=== PATIENT | male | born 1955 | race Caucasian/White ===

== ENCOUNTER 2017-11-22 05:09 | Inpatient (IN) | payer MEDICARE ==
[~2017-11-22] VITALS: Ht 175.3 cm; Wt 103.6 kg
[~2017-11-22 05:09] MED LIST: AMLO5TAB2 PO; AZAT50 PO; CYCL10TA PO; DICL75TA PO; FENO200C PO; HYDR-2376 PO; HYDR12.56 PO; OLOP1DRO2 EACH EYE
[2017-11-22] MEDS ORDERED: POVIDONE IODINE 5% (ANTISEPSIS KIT) 4 APPLICATIONS EACH NARE PRN (05:30)
[2017-11-22] MEDS ORDERED: CHLORHEXIDINE GLUCONATE 2 % 1 PACK (2 CLOTHS) TOPICAL PRN (05:30)
[2017-11-22] MEDS ORDERED: SODIUM CHLORID 0.9% 500 ML IV PRN (05:30)
[2017-11-22] MEDS ORDERED: DEXAMETHASONE SOD PHOS 20 MG/5 ML VIAL IV PRN (05:30)
[2017-11-22] MEDS ORDERED: METOPROLOL TARTRATE 25 MG TAB PO PRN (05:30)
[2017-11-22] MEDS ORDERED: LACTATED RINGER'S 1000 ML IV PRN (05:30)
[2017-11-22] MEDS ORDERED: CHLORHEXIDINE GLUCONATE 4% SOLN 120 ML BTL TOPICAL SCH (05:45)
[2017-11-22] MEDS ORDERED: TRANEXAMIC ACID IV SCH (05:45)
[2017-11-22] MEDS ORDERED: POVIDONE IODINE 7.5% SCRUB 118 ML BOTTLE TOPICAL SCH (05:45)
[2017-11-22] MEDS ORDERED: ROPIVACAINE PERI-ARTICULAR INJECTION. P-ARTICULR SCH ×5 (05:45)
[2017-11-22] MEDS ORDERED: VANCOMYCIN 1000 MG/NS 250 ML (for <70 kg) IV SCH ×2 (05:45)
[2017-11-22] MEDS ORDERED: SODIUM CHLORIDE 0.9% IV SCH (05:45)
[2017-11-22] MEDS ORDERED: ceFAZolin 2 GM PREMIX 50 ML IV SCH (05:45)
[2017-11-22] MEDS ORDERED: TRANEXAMIC PERI-ARTICULAR 3,000 MG/NS 100 ML P-ARTICULR SCH ×2 (05:45)
[2017-11-22] MEDS ORDERED: GENTAMICIN SULFATE 80 MG/2 ML VIAL ONE (07:21)
[2017-11-22] MEDS ORDERED: BUPIVACAINE LIPOSOME PF 1.3% 20 ML VIAL ONE (07:48)
[2017-11-22] MEDS ORDERED: ACETAMINOPHEN 1000 MG/100 ML 100 ML IV ONE (07:49)
[2017-11-22] MEDS ORDERED: PROPOFOL 500 MG/50 ML INJ 50 ML ONE (07:55)
--- NOTE | 2017-11-22 08:32 | HHI.DCPOC ---
Discharge Care Plan Diagnosis: (1) Primary osteoarthritis of left knee Your Health Problems Are: Difficulty with ADL Goals to Promote Your Health * To prevent worsening of your condition and complications * To maintain your health at the optimal level Directions to Meet Your Goals Take your medications as prescribed Follow your dietary instruction Follow activity as directed Keep your appointments as scheduled Take your immunizations and boosters as scheduled If your symptoms worsen call your PCP, if no PCP go to Urgent Care Center or Emergency Room Smoking is Dangerous to Your Health. Avoid second hand smoke Call the 24-hour hour crisis hotline for domestic abuse at Luis A Jama Nov 22, 2017 08:32
--- NOTE | 2017-11-22 08:35 | HHI.FF ---
Face to Face Verification Diagnosis: (1) Primary osteoarthritis of left knee Physical Therapy Gait training, Safety evaluation, Transfer training, bed to chair Knee: Total knee, Protocol: Left Left LE Weight Bearing: WB as tolerated Nursing RN: 3 days/week x 2 weeks Nursing: Kj teaching, Dressing changes Dressing Changes: Daily dressing change I have seen patient Janes Oropeza on 11/22/17. My clinical findings support the need for the requested home health care services because: Limited ability to care for self High risk of falls I certify that my clinical findings support that this patient is homebound because: Post-op weakness Unsteady gait/balance Luis A Jama Nov 22, 2017 08:35
[2017-11-22] MEDS ORDERED: CPMMACHINE (08:36)
[2017-11-22] MEDS ORDERED: COMMODE 3-IN-11 MIS (08:36)
[2017-11-22] MEDS ORDERED: WALKER WHEELS/F1 MIS (08:36)
[2017-11-22] MEDS ORDERED: CLINDAMYCIN PHOS 900 MG/6 ML VIAL ONE (08:37)
[2017-11-22] MEDS ORDERED: Post-op Orders (for Pharmacy) XX ONE (08:45)
[2017-11-22] MEDS ORDERED: ONDANSETRON HCL 4 MG/2 ML VIAL IVP PRN (08:45)
[2017-11-22] MEDS ORDERED: ACETAMINOPHEN/HYDROcodone 325 MG/7.5 MG TAB PO PRN (08:45)
[2017-11-22] MEDS ORDERED: BISACODYL 10 MG SUPP RECTAL PRN (08:45)
[2017-11-22] MEDS ORDERED: diphenhydrAMINE HCL 50 MG/ML VIAL IV PUSH PRN (08:45)
[2017-11-22] MEDS ORDERED: HYDR-3288 PO (08:49)
[2017-11-22] MEDS ORDERED: ASPI81CH6 CHEW (08:50)
[2017-11-22] MEDS ORDERED: ENOX40P SQ (08:50)
[2017-11-22] MEDS ORDERED: DO NOT ADM ANY ANTICOAGULANT DRUGS PRN (10:44)
[2017-11-22] MEDS: SODIUM CHLOR 0.9% 1000 ML INJ 1,000 ML IV SCH ×3 (11:04→21:09)
--- NOTE | 2017-11-22 11:54 | PD.ORT.PN ---
Subjective Post Op Day #: 0 Objective Vitals Vital Signs Date Time Temp Pulse Resp B/P (MAP) Pulse Ox O2 Delivery O2 Flow Rate FiO2 11/22/17 11:30 76 15 125/68 (87) 95 Room Air 11/22/17 11:15 78 20 124/65 (84) 95 Room Air 11/22/17 11:00 84 22 110/53 (72) 96 Room Air 11/22/17 10:45 98.2 85 14 130/64 (86) 96 Nasal Cannula 2 11/22/17 06:15 98.7 82 16 148/86 (106) 97 I/O 11/21/17 11/21/17 11/21/17 11/22/17 11/22/17 11/22/17 07:00 15:00 23:00 07:00 15:00 23:00 Intake Total 1250 ml Output Total 550 ml Balance 700 ml Intake IV Total 1250 ml Output Urine Total 450 ml Estimated Blood Loss 100 ml Assessment & Plan Ortho Post Op Day #: 0 Problem List: Assessment and Plan s/p L TKA wbat daily dressing changes lovenox d/c planning home with hhc and pt - sat or sun if does well in PT rx in chart f/up dr. collins 2 weeks Luis A Jama Nov 22, 2017 11:54
[2017-11-22 12:00] VITALS: BP 136/75; PULSE 83; RESP 16; TEMP 96.8; O2SAT 96
[2017-11-22] MEDS ORDERED: LACTATED RINGER'S 1000 ML INJ 1,000 ML IV ONE (12:00)
[2017-11-22] MEDS ORDERED: PROPOFOL 200 MG/20 ML AMP IV ONE (12:00)
[2017-11-22] MEDS ORDERED: ONDANSETRON HCL 4 MG/2 ML VIAL IV PUSH ONE (12:00)
[2017-11-22] MEDS ORDERED: SODIUM CHLORIDE 0.9% 20 ML VIAL IV ONE (12:00)
--- NOTE | 2017-11-22 12:18 | RADRPT ---
EXAM DATE/TIME: 11/22/2017 11:21 [facility] COMPARISON: No previous studies available for comparison. INDICATIONS : Post total left knee. MEDICAL HISTORY : None. SURGICAL HISTORY : Total knee replacement, left. ENCOUNTER: Initial ACUITY: 1 day PAIN SCORE: 1/10 LOCATION: Left knee FINDINGS: Postop total left knee replacement. Air and fluid in soft tissues. Normal alignment. CONCLUSION: 1. Postop knee replacement. Antwan Glynn MD on November 22, 2017 at 12:13 Board Certified Radiologist. This report was verified electronically.
[2017-11-22] MEDS: ACETAMINOPHEN/HYDROcodone 325 MG/7.5 MG TAB PO PRN ×3 (15:33→23:36)
[2017-11-22 16:00] VITALS: BP 178/94; PULSE 107; RESP 18; TEMP 97; O2SAT 95
--- NOTE | 2017-11-22 16:07 | PD.CONS ---
[facility] By Dr. Luis A Carcamo Reason for Consult Medical management history of hypertension arthritis hypertriglyceridemia Primary Care Physician Cody Orosco Jr, DO Diagnoses: History of Present Illness Patient is a very pleasant 62-year-old male with known history of hypertension arthritis who is admitted under orthopedic service and underwent left total knee arthroplasty. Patient has been dealing with this pain for about 1-1/2 years now with increasing difficulty walking. Not using any assistive device but patient states "struggling through". Admitted today and underwent left [facility] of history of hypertension. Patient seen postop day 0 very motivated with physical therapy patient already ambulated with PT today. And did very well with a walker. Review of Systems Constitutional: DENIES: Diaphoretic episodes, Fatigue, Fever, Weight gain, Weight loss, Chills, Dizziness, Change in appetite, Night Sweats Endocrine: DENIES: Heat/cold intolerance, Polydipsia, Polyuria, Polyphagia Eyes: DENIES: Blurred vision, Diplopia, Eye inflammation, Eye pain, Vision loss , Photosensitivity, Double Vision Ears, nose, mouth, throat: DENIES: Tinnitus, Hearing loss, Vertigo, Nasal discharge, Oral lesions, Throat pain, Hoarseness, Ear Pain, Running Nose, Epistaxis, Sinus Pain, Toothache, Odynophagia Respiratory: DENIES: Apneas, Cough, Snoring, Wheezing, Hemoptysis, Sputum production, Shortness of breath Cardiovascular: DENIES: Chest pain, Palpitations, Syncope, Dyspnea on Exertion , PND, Lower Extremity Edema, Orthopnea, Claudication Gastrointestinal: DENIES: Abdominal pain, Black stools, Bloody stools, Constipation, Diarrhea, Nausea, Vomiting, Difficulty Swallowing, Anorexia Genitourinary: DENIES: Sexual dysfunction, Urinary frequency, Urinary incontinence, Urgency, Hematuria, Dysuria, Nocturia, Penile Discharge, Testicular Pain, Testicular Swelling Musculoskeletal: COMPLAINS OF: Joint pain Integumentary: DENIES: Abnormal pigmentation, Nail changes, Pruritus, Rash Hematologic/lymphatic: DENIES: Bruising, Lymphadenopathy Immunologic/allergic: DENIES: Eczema, Urticaria Neurologic: DENIES: Abnormal gait, Headache, Localized weakness, Paresthesias, Seizures, Speech Problems, Tremor, Poor Balance Psychiatric: DENIES: Anxiety, Confusion, Mood changes, Depression, Hallucinations, Agitation, Suicidal Ideation, Homicidal Ideation, Delusions Past Family Social History Allergies: Coded Allergies: cephalexin (Verified Allergy, Severe, Rash, 11/22/17) ciprofloxacin (Verified Allergy, Severe, MOUTH SORES, 11/22/17) SKIN ITCHES niacin (Verified Allergy, Severe, Rash, 11/22/17) crawling feeling penicillin G (Verified Allergy, Severe, rash, 11/22/17) Past Medical History Hypertension Arthritis Hypertriglyceridemia History of Erythrocytosis- per patient requiring periodic phlebtomy- about 1 pint every 60-90 days Denies any history of diabetes denies any history of CVA denies any history of CAD Past Surgical History Gallbladder surgery Appendectomies for a ruptured up and discitis Abdominal hernia surgery rhinoplasties x2 for broken bones due to sports injuries Reported Medications Up home patient is on Flexeril Fenofibrate Diclofenac sodium Aspirin Hydrochlorothiazide Azathioprine Active Ordered Medications Multivitamins Lovenox Hydrochlorothiazide Ambien when necessary Amlodipine Lortab when necessary for pain Family History Strong family history of CVA Social History Quit smoking 15 years ago Very occasional wine Denies any substance abuse Physical Exam Vital Signs Vital Signs Date Time Temp Pulse Resp B/P (MAP) Pulse Ox O2 Delivery O2 Flow Rate FiO2 11/22/17 12:30 97.5 81 22 125/65 (85) 96 Room Air 11/22/17 12:15 78 17 120/64 (82) 96 Room Air 11/22/17 12:00 96.8 83 16 136/75 (95) 96 11/22/17 12:00 79 22 124/73 (90) 95 Room Air 11/22/17 11:45 78 24 123/70 (87) 95 Room Air 11/22/17 11:30 76 15 125/68 (87) 95 Room Air 11/22/17 11:15 78 20 124/65 (84) 95 Room Air 11/22/17 11:00 84 22 110/53 (72) 96 Room Air 11/22/17 10:45 98.2 85 14 130/64 (86) 96 Nasal Cannula 2 11/22/17 06:15 98.7 82 16 148/86 (106) 97 Physical Exam GENERAL: This is a well-nourished, well-developed patient, in no apparent distress. SKIN: No rashes, ecchymoses or lesions. Cool and dry. HEAD: Atraumatic. Normocephalic. No temporal or scalp tenderness. EYES: Pupils equal round and reactive. Extraocular motions intact. No scleral icterus. ENT: Nose without bleeding, . Throat without erythema, tonsillar hypertrophy or exudate. Uvula midline. Airway patent. NECK: Trachea midline. No JVD Supple, nontender, no meningeal signs. CARDIOVASCULAR: Regular rate and rhythm without murmurs, gallops, or rubs. RESPIRATORY: Clear to auscultation. Breath sounds equal bilaterally. No wheezes , rales, or rhonchi. GASTROINTESTINAL: Abdomen soft, non-tender, nondistended. No hepato-splenomegaly , or palpable masses. No guarding. Duke catheter in place MUSCULOSKELETAL: Extremities without clubbing, cyanosis, or edema. No joint tenderness, effusion, or edema noted. No calf tenderness. Negative Homans sign bilaterally. Left knee postop dressing in place. NEUROLOGICAL: Awake and alert. Cranial nerves II through XII intact. Motor and sensory grossly within normal limits. Five out of 5 muscle strength in all muscle groups. Normal speech. Imaging Last Impressions Knee X-Ray 11/22/17 0845 Signed Impressions: Service Date/Time: Wednesday, November 22, 2017 11:21 - CONCLUSION: 1. Postop knee replacement. Antwan Glynn MD Assessment and Plan Assessment and Plan 62-year-old male admitted for Status post left total knee arthroplasty November 22 Followed by orthopedic surgery Continue PT efforts patient very motivated When necessary pain meds per primary service History of hypertension e continue on hydrochlorothiazide 12.5 mg daily. Amlodipine 5 mg daily. History of hyperlipidemia. Restart Tricor as outpatient. History of arthritis. On azathioprine as outpatient. Hold for now. 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 Fitzpatrick History of Erythrocytosis requiring periodic phlebotomies. Lovenox for DVT prophylaxis Discharge planning patient prefers to go home with home physical therapy. Discussed Condition With Patient and at bedside Shasta Sinclair MD Nov 22, 2017 16:07
[2017-11-22] MEDS: amLODIPine BESYLATE 5 MG TAB PO SCH (17:13)
[2017-11-22 20:00] VITALS: BP 172/82; PULSE 106; RESP 17; TEMP 98.2; O2SAT 96
[2017-11-22] MEDS ORDERED: ZOLPIDEM TARTRATE 5 MG TAB PO PRN (21:00)
[2017-11-22] MEDS: VANCOMYCIN INJ 1,000 MG in SODIUM CHLOR 0.9% 250 ML INJ 250 ML IV SCH (21:01)
[2017-11-22] MEDS: MORPHINE SULFATE 2 MG/ML INJ IV PUSH PRN (21:07)
[2017-11-23] VITALS: BP 154/78; PULSE 90; RESP 17; TEMP 97.8; O2SAT 98
[2017-11-23] MEDS: MORPHINE SULFATE 2 MG/ML INJ IV PUSH PRN (03:03)
[2017-11-23 04:00] VITALS: BP 149/81; PULSE 87; RESP 16; TEMP 97.2; O2SAT 96
[2017-11-23 06:39] LABS: HEMATOCRIT 38.3 % (39.0-51.0); MEAN CELL VOLUME 86.1 FL (80.0-100.0); MEAN CORPUSCULAR HEMOGLOBIN 29.3 PG (27.0-34.0); PLATELET COUNT 223 TH/MM3 (150-450); RED BLOOD COUNT 4.45 MIL/MM3 (4.50-5.90); REVIEW FLAG FINAL; WHITE BLOOD COUNT 16.8 TH/MM3 (4.0-11.0)
[2017-11-23 07:08] LABS: POTASSIUM 3.7 MEQ/L (3.5-5.1)
[2017-11-23] MEDS: ACETAMINOPHEN/HYDROcodone 325 MG/7.5 MG TAB PO PRN ×3 (07:12→16:05)
[2017-11-23 08:00] VITALS: BP 143/78; PULSE 88; RESP 18; TEMP 96.5; O2SAT 97
[2017-11-23] MEDS: amLODIPine BESYLATE 5 MG TAB PO SCH (08:44)
[2017-11-23] MEDS: VANCOMYCIN INJ 1,000 MG in SODIUM CHLOR 0.9% 250 ML INJ 250 ML IV SCH (08:44)
[2017-11-23] MEDS ORDERED: HYDROCHLOROTHIAZIDE 12.5 MG CAP PO SCH (09:00)
[2017-11-23] MEDS ORDERED: ENOXAPARIN SODIUM 40 MG/0.4 ML SYRINGE SQ SCH (10:00)
[2017-11-23 11:28] VITALS: O2SAT 97
[2017-11-23 12:00] VITALS: BP 165/90; PULSE 97; RESP 18; TEMP 98; O2SAT 97
--- NOTE | 2017-11-23 12:50 | HHI.PR ---
Subjective Remarks patient doing great great IS efforts afebrile- no urianry symptoms, no cough Objective Vitals Vital Signs Date Time Temp Pulse Resp B/P (MAP) Pulse Ox O2 Delivery O2 Flow Rate FiO2 11/23/17 11:28 97 11/23/17 08:18 16 11/23/17 08:00 96.5 88 18 143/78 (99) 97 11/23/17 04:00 97.2 87 16 149/81 (103) 96 11/23/17 03:22 19 11/23/17 00:00 97.8 90 17 154/78 (103) 98 11/22/17 22:18 Room Air 11/22/17 20:00 98.2 106 17 172/82 (112) 96 11/22/17 16:00 97.0 107 18 178/94 (122) 95 I/O 11/22/17 11/22/17 11/22/17 11/23/17 11/23/17 11/23/17 07:00 15:00 23:00 07:00 15:00 23:00 Intake Total 1646 ml 1094 ml 1800 ml Output Total 1150 ml 1050 ml Balance 496 ml 1094 ml 750 ml Intake Oral 240 ml 1800 ml IV Total 1406 ml 1094 ml Output Urine Total 1050 ml 1050 ml Estimated Blood Loss 100 ml Result Diagram: 11/23/17 0601 11/23/17 0601 Imaging Last Impressions Knee X-Ray 11/22/17 0845 Signed Impressions: Service Date/Time: Wednesday, November 22, 2017 11:21 - CONCLUSION: 1. Postop knee replacement. Antwan Glynn MD Objective Remarks awake and alert oriented x 3 anicteric lungs clear regular rhythm abdomen soft, nontender extremities no edema- - post op dressing intact Procedures 11/22- right TKA A/P Assessment and Plan 62-year-old male admitted for Status post left total knee arthroplasty November 22 Followed by orthopedic surgery Continue PT efforts patient very motivated When necessary pain meds per primary service History of hypertension, continue on Home meds- HCTZ, Amlodipine Leukocytosis ? reactive afebrile no urinary symptoms patient did received IV steroid x 1 dose d/w staff nurse- to check with ortho- and look at incision site for any signs of infection - antibiotics if indicated advise to check CBC as OP with results to PCP History of hyperlipidemia. Restart Tricor as outpatient. History of arthritis. On azathioprine as outpatient. Hold for now. 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 Fitzpatrick History of Erythrocytosis requiring periodic phlebotomies. in the past. H and H good Lovenox for DVT prophylaxis Discharge per ortho- home with home health care d/w patient and regarding having CBC check on Saturday if DC today Shasta Sinclair MD Nov 23, 2017 12:50
[2017-11-23 13:10] VITALS: RESP 16
--- NOTE | 2017-11-23 14:13 | PD.ORT.PN ---
Subjective Post Op Day #: 1 Subjective Remarks Patient resting in bed using CPM. Patient reports minimal pain. Discussed delay in PT until Saturday. Patient has CPM for home use and is comfortable with the slight delay in PT. Patient will maintain HEP. Objective Vitals Vital Signs Date Time Temp Pulse Resp B/P (MAP) Pulse Ox O2 Delivery O2 Flow Rate FiO2 11/23/17 13:10 16 11/23/17 12:00 98.0 97 18 165/90 (115) 97 11/23/17 11:28 97 11/23/17 08:00 96.5 88 18 143/78 (99) 97 11/23/17 04:00 97.2 87 16 149/81 (103) 96 11/23/17 03:22 19 11/23/17 00:00 97.8 90 17 154/78 (103) 98 11/22/17 22:18 Room Air 11/22/17 20:00 98.2 106 17 172/82 (112) 96 11/22/17 16:00 97.0 107 18 178/94 (122) 95 I/O 11/22/17 11/22/17 11/22/17 11/23/17 11/23/17 11/23/17 07:00 15:00 23:00 07:00 15:00 23:00 Intake Total 1646 ml 1094 ml 1800 ml Output Total 1150 ml 1050 ml Balance 496 ml 1094 ml 750 ml Intake Oral 240 ml 1800 ml IV Total 1406 ml 1094 ml Output Urine Total 1050 ml 1050 ml Estimated Blood Loss 100 ml Result Diagram: 11/23/17 0601 11/23/17 0601 Procedures Left TKA Objective Remarks Dressing is C/D/I. EHL/TA/G intact. 2+ pedal pulse. Calf soft and nontender. + SILT. Assessment & Plan Ortho Post Op Day #: 1 Problem List: Assessment and Plan POD #1: s/p L TKA wbat daily dressing changes lovenox stable per ortho for discharge home with home health today. Will see RN tomorrow and PT on Saturday. rx in chart f/up dr. collins 2 weeks Jacky Paulino Nov 23, 2017 14:13
[2017-11-23] MEDS: SODIUM CHLOR 0.9% 1000 ML INJ 1,000 ML IV SCH (14:45)
[2017-11-23] MEDS ORDERED: MULTIVITAMINS/MINERALS THERAPEUTIC TAB PO SCH (21:00)
[2017-11-23] MEDS ORDERED: DOCUSATE SODIUM 100 MG CAP PO SCH (21:00)
--- NOTE | 2017-11-25 09:30 | MP ---
cc: NICOLLE TEJADA DATE OF SURGERY 11/22/2017 PREOPERATIVE DIAGNOSIS Left knee osteoarthritis POSTOPERATIVE DIAGNOSES Left knee osteoarthritis PROCEDURE Left total knee arthroplasty SURGEON Dr. yAdee Tejada [employer] MIRELLA Pak ANESTHESIA Spinal with an adductor canal femoral nerve block. ESTIMATED BLOOD LOSS 100 mL COMPLICATIONS None. IMPLANTS USED DePuy Corail size 7 posterior stabilized femoral component, size 7 rotating platform tibia baseplate, size 5 mm polyethylene tibial insert, size 38 patella. JUSTIFICATION The patient is a 62-year-old male with history of severe end-stage osteoarthritis involving the left knee. He has severe disabling pain with standing, walking, ambulation, weight-bearing activities and severe pain at rest. He has failed greater than three months of nonoperative conservative to include medication therapy, injection, ambulatory assistive aids, home exercise program, activity modification and weight loss. X-ray of the left knee revealed severe end-stage osteoarthritis with joint space narrowing, subchondral sclerosis, subchondral cyst osteophyte formation and associated subluxation. The patient was counseled as to risks, benefits and alternatives to a total knee arthroplasty. The risks were discussed which include but are not limited to infection damage to nerves, blood vessels, pain, stiffness, failure of components, blood clots, pulmonary embolism, even . The patient's pain is severe. He favored the benefits over the risks and did wish to proceed with surgery. A written consent obtained. PROCEDURE IN DETAIL The patient was identified by name, taken to the operating room and placed supine on the operating table. Spinal anesthesia was administered as well as 1 gram of IV vancomycin and 900 mg of IV clindamycin. He does have PENICILLIN ALLERGY. A well-padded tourniquet was placed on left thigh. The left lower extremity was prepped and draped using isopropyl alcohol, Hibiclens solution and Chloraprep solution. After a time-out was performed, an Esmarch bandage was used to exsanguinate the left lower extremity. Tourniquet was inflated to 250 mmHg. A longitudinal incision was made over the anterior aspect of tjhe left knee. A medial parapatellar arthrotomy was performed. The patella was everted. Patellar resection guide was used to resect 9 mm of patella. A size 38 mm guide was placed. Three drill holes were placed and a 38 mm trial fit well. Attention was turned to the femur where intramedullary guide was placed and the distal femoral guide was set to remove 10 mm of distal femur, 5 degrees off the anatomic valgus axis alignment and an oscillating saw was used to perform a distal femoral cut. Attention was turned to the tibia where an extramedullary tibial guide was set to remove 6 mm off the lowest portion of medial tibial plateau. The tibial guide was pinned in place and tibia cut was performed. A 5-mm spacer block showed full extension. Attention was turned back to the femur. The AP sizing block measured size 7. The anterior reference 3 degree external rotation guide was used to pin a size [address] The anterior, posterior and chamfer cuts were performed. A size 7 PCL box guide was pinned in place and PCL with an oscillating saw. The medial lateral meniscus remnants were removed as well as bone and soft tissue debris from posterior portion of the knee. A size 7 tibia spacer was pinned in place and tibia was drilled. cemented in place the current components. The leg achieved full extension at 0 degrees and flexion 140, no evidence of tibial lift-off, varus-valgus balance appeared appropriate and symmetric. Tourniquet was deflated. Bovie cautery was used for hemostasis. After thorough irrigation was performed. The arthrotomy incision was closed on Vicryl suture, subcutaneous tissue with 2-0 Vicryl suture. Skin was closed with Dermabond. Sterile dressing applied. The patient tolerated the procedure well. No intraoperative complications noted. Asher Jama, physician workforce development assistant certified, was present during entire procedure to include patient positioning and the procedure itself. The medical necessity of a physician workforce development assistant was indicated in the case due to the complexity of the procedure. He assisted with appropriate manipulation of the leg and also traction of muscle, tendon, bone and neurovascular structures. He assisted with preparation of bone and also implantation of the prosthetic replacement. MD VEL Ni/ /10:07 AM /9:09 AM
== END 2017-11-23 16:06 | disposition home health service (06) | DRG 470 ==
LOC: HSDI 05:09 → N06B 13:05
PROVIDERS: ADMIT Orthopaedic Surgery Sports Medicine; ATTEND Orthopaedic Surgery Sports Medicine
PROC: 3E0T3BZ Introduction of Anesthetic Agent into Peripheral Nerves and Plexi, Percutaneous Approach (ICD-10-PCS; 2017-11-22)
PROC: 0SRD0J9 Replacement of Left Knee Joint with Synthetic Substitute, Cemented, Open Approach (ICD-10-PCS; principal; 2017-11-22 08:29)
DX: M17.0 Bilateral primary osteoarthritis of knee (principal); D75.1 Secondary polycythemia; I10 Essential (primary) hypertension; M25.762 Osteophyte, left knee; S83.242A Other tear of medial meniscus, current injury, left knee, initial encounter; M71.22 Synovial cyst of popliteal space [Baker], left knee; E78.1 Pure hyperglyceridemia; Z87.891 Personal history of nicotine dependence; Z88.0 Allergy status to penicillin; Z88.1 Allergy status to other antibiotic agents
CPT/HCPCS: 73560; 80048; 85027; 86850; 86900; 86901; 94150; C9290; J0131; J0735; J1100; J1580; J1650; J1885; J2270; J2405; J2795; J3370; J7030; J7050; J7120; L1830